=== PATIENT | female | born 1950 | race Caucasian/White ===

== ENCOUNTER → 2020-06-28 | Outpatient (CLI) | payer OTHER ==
--- NOTE | 2020-07-03 17:07 | RAD ---
DATE: 06/28/2020 2:45 PM EXAM: MAMMO ABE SCREENING BILATERAL HISTORY: Screening COMPARISON: 05/17/2017, 04/06/2016 Bilateral CC and MLO views of the breasts were performed. Bilateral breast tomosynthesis was performed in CC and MLO projections. This study was interpreted with the benefit of Computerized Aided Detection (CAD). FINDINGS: Breast Density: SCATTERED The breast parenchyma shows scattered fibroglandular densities. Breast parenchyma level B Negative left mammogram. New 6 mm round circumscribed isodense mass at the right 12:00 position approximately 6 cm from the nipple needs additional imaging with targeted right breast ultrasound. IMPRESSION: Incomplete. Right breast needs additional imaging. BI-RADS CATEGORY: 0 INCOMPLETE: NEEDS ADDITIONAL IMAGING EVALUATION AND/OR PRIOR MAMMOGRAMS FOR COMPARISON. RECOMMENDED FOLLOW-UP: ADD ADDITIONAL IMAGING The patient will be contacted to return for additional imaging and a supplemental report will follow. PQRS compliance statement: Patient information was entered into a reminder system with a target due date for the next mammogram. Mammography is a sensitive method for finding small breast cancers, but it does not detect them all and is not a substitute for careful clinical examination. A negative mammogram does not negate a clinically suspicious finding and should not result in delay in biopsying a clinically suspicious abnormality. "Our facility is accredited by the [employer] Mammography [employer]."
== END | disposition home or self-care (01) ==
LOC: MAMMO 14:33
PROVIDERS: ATTEND Family Medicine
DX: Z12.31 Encounter for screening mammogram for malignant neoplasm of breast (principal)
CPT/HCPCS: 77063; 77067

== ENCOUNTER → 2020-07-12 | Outpatient (CLI) | payer OTHER ==
--- NOTE | 2020-07-12 13:32 | RAD ---
Examination: Limited right breast ultrasound. INDICATION: Screening recall for new right breast mass. COMPARISON: 06/28/2020 and 05/17/2017 right mammograms. TECHNIQUE: Grayscale and color Doppler imaging of the superior right breast was performed in the area of mammographic interest. Sonographic survey of the subareolar breast and right axilla was also performed. FINDINGS: The right breast shows a 6 mm circumscribed anechoic mass with posterior acoustic enhancement and well-defined pierre, compatible with a sonographically benign cyst. There are low level internal echoes. In addition, cluster of septated cysts are present at the right 11:30 o'clock position 7 cm from the nipple. No axillary adenopathy. Subareolar right breast is unremarkable. IMPRESSION: Probably benign cysts in the right breast. Recommend a six-month follow-up right breast ultrasound. BI-RADS Category 3 Probably benign
== END | disposition home or self-care (01) ==
LOC: US 12:36
PROVIDERS: ATTEND Family Medicine
DX: R92.8 Other abnormal and inconclusive findings on diagnostic imaging of breast (principal); N60.01 Solitary cyst of right breast
CPT/HCPCS: 76641

== ENCOUNTER → 2021-02-07 | Outpatient (CLI) | payer OTHER ==
--- NOTE | 2021-02-10 08:31 | RAD ---
Limited right breast ultrasound INDICATION: 70-year-old woman presents for six-month follow-up probably benign cysts in the right dionisio ast COMPARISON: Right breast ultrasound 07/12/2020, bilateral screening mammogram 06/28/2020 TECHNIQUE: Grayscale and color Doppler imaging of the right breast in the area of mammographic intere st targeting the 12:00 position 5 cm from the nipple in the 11:30 o'clock position 7 cm from the nipp le was performed. Sonographic survey of the right axilla was also performed FINDINGS: Sonographically benign cysts are identified in both targeted areas of ultrasound follow-up with thin internal septation. No axillary adenopathy. IMPRESSION: Benign findings on targeted right breast ultrasound. No evidence of malignancy. Recommend return to routine screening. BI-RADS Category 2 Benign findings Electronically signed by: Lenny Mooney MD (02/10/2021 8:29 AM) [id number]
== END ==
LOC: US 12:46
PROVIDERS: ATTEND Family Medicine
DX: R92.8 Other abnormal and inconclusive findings on diagnostic imaging of breast (principal)
CPT/HCPCS: 76641

== ENCOUNTER → 2021-07-28 | Outpatient (CLI) | payer OTHER ==
--- NOTE | 2021-07-28 15:40 | RAD ---
INDICATION: 70 years of age asymptomatic female patient presents for screening mammography. TECHNIQUE: Full field craniocaudal and mediolateral oblique images of both breasts were obtained usi ng digital technique with tomosynthesis and also analyzed with computer-aided detection software. COMPARISON: Prior mammographic imaging 06/28/2020, 05/17/2017, 04/06/2016 BREAST COMPOSITION: Category C: The breast tissue is heterogeneously dense, which could obscure detec tion of small masses. FINDINGS: Benign calcifications are present. The parenchymal pattern appears stable. No suspicious masses, microcalcifications or architectural distortion is present to suggest malignanc y in either breast. The visualized axillae are unremarkable. IMPRESSION: No mammographic evidence of malignancy. RECOMMENDATION: Annual screening mammography is recommended, unless clinically indicated sooner based on symptoms or change in physical exam. BIRADS 2: BENIGN This study was interpreted with the benefit of Computerized Aided Detection (CAD). Patient information is entered into the reminder system with a target due date for the next screening mammogram. Mammography is the most sensitive method for finding small breast cancers, but it does not detect the m all and is not a substitute for careful clinical examination. A negative mammogram does not negate a clinically suspicious finding and should not result in delay in biopsying a clinically suspicious a bnormality. "Our facility is accredited by the [employer] Mammography [employer]." Electronically signed by: Javier Costa MD (07/28/2021 3:38 PM) [id number]
== END ==
LOC: MAMMO 09:35
PROVIDERS: ATTEND Family Medicine
DX: Z12.31 Encounter for screening mammogram for malignant neoplasm of breast (principal); R92.1 Mammographic calcification found on diagnostic imaging of breast
CPT/HCPCS: 77063; 77067